=== PATIENT | male | born 1980 | race Caucasian/White ===

== ENCOUNTER 2016-10-22 12:47 | Emergency (ER) | payer SELFPAY ==
[2016-10-22] MEDS ORDERED: AMOX875T2 PO (13:11)
[2016-10-22 15:22] VITALS: BP 139/85
== END 2016-10-22 15:23 | disposition home or self-care (01) ==
LOC: M ED 14:04
DX: F10.10 Alcohol abuse, uncomplicated (principal); Z88.6 Allergy status to analgesic agent; Z91.018 Allergy to other foods; F32.9 Major depressive disorder, single episode, unspecified; E11.9 Type 2 diabetes mellitus without complications